=== PATIENT | male | born 1945 | race Caucasian/White ===

== ENCOUNTER 2018-03-24 08:49 | Outpatient (CLI) | payer MEDICARE ==
--- NOTE | 2018-03-24 10:06 | ULT ---
ABDOMINAL AORTIC ULTRASOUND WITH PEREYRA SCALE AND DOPPLER COLOR FLOW AND SPECTRAL ANALYSIS: Date; 03/24/18 HISTORY: Cerebrovascular disease. Screening evaluation for aortic aneurysm. FINDINGS: There is atherosclerotic irregularity of the imaged aorta. The proximal aorta does approximate aneury smal size at 2.9 cm in visualized diameter. Mid abdominal aorta is documented at 1.5 cm and distal ab dominal aorta is 1.1 cm in diameter. IMPRESSION: Borderline aneurysmal dilatation of the abdominal aorta. This may be further assessed with dedicated CTA of abdomen. POS: BARBIE
== END 2018-03-24 08:50 | disposition home or self-care (01) ==
LOC: SCSULT 08:49
PROVIDERS: ATTEND Family Medicine
DX: Z13.6 Encounter for screening for cardiovascular disorders (principal)
CPT/HCPCS: 76775

== ENCOUNTER 2018-04-01 10:17 | Outpatient (CLI) | payer MEDICARE ==
[2018-04-01] MEDS ORDERED: Iopamidol 370 76% 100 ML VIAL ONE (11:24)
== END 2018-04-01 10:18 | disposition home or self-care (01) ==
LOC: BICCT 10:17
PROVIDERS: ATTEND Family Medicine
DX: I77.819 Aortic ectasia, unspecified site (principal); N20.0 Calculus of kidney
CPT/HCPCS: 74175; 82565

== ENCOUNTER 2018-12-21 08:29 | Outpatient (CLI) | payer MEDICARE ==
--- NOTE | 2018-12-21 12:02 | CT ---
CT ANGIO CHEST WITH IV CONTRAST AND 3D POST PROCESSING: HISTORY: A 73-year-old male with aortic root dilatation. Hypertension. FINDINGS: No mediastinal, hilar, or axillary mass or lymphadenopathy is seen. No pleural or pericardial effusi ons are identified. The lung rahman are clear. There are degenerative changes in the spine. The aortic measurements at different levels are as follows: Aortic annulus: 2.6 cm Aortic sinuses of Valsalva: 4.2 cm Sinotubular junction: 2.6 cm Mid ascending aorta: 3.8 cm High ascending aorta: 3.6 cm Mid aortic arch: 2.8 cm Proximal descending aorta: 2.9 cm Mid descending aorta: 2.4 cm Aorta at diaphragmatic hiatus (2 cm above the celiac axis origin): 2.7 cm At celiac axis origin: 2.5 cm The thoracic aorta is well opacified without evidence of dissection. There is a cyst arising from th e upper aspect of the left kidney, on the upper abdominal tomograms. A tiny, nonobstructing right re nal calculus is also noted. There is a small hiatal hernia. IMPRESSION: Aortic measurements as above. POS: BARBIE
== END 2018-12-21 08:30 | disposition home or self-care (01) ==
LOC: SCSCT 08:29
PROVIDERS: ATTEND Internal Medicine Cardiovascular Disease
DX: I77.810 Thoracic aortic ectasia (principal)
CPT/HCPCS: 71275; 82565

== ENCOUNTER 2020-07-05 08:21 | Outpatient (CLI) | payer MEDICARE ==
--- NOTE | 2020-07-05 10:53 | CT ---
CTA CHEST WITH CONTRAST: Date: 07/05/2020 COMPARISON: 12/21/2018. HISTORY: Aortic root dilation. TECHNIQUE: Multiple contiguous axial images were obtained in a CTA of the chest with contrast. 3D sagittal and c oronal MIP reformats were performed. FINDINGS: The heart is normal in size without focal cardiac abnormality. Calcifications are seen in the coronar y arteries. No hilar or mediastinal lymphadenopathy are seen. There is a small hiatal hernia. Aortic measurements are as follows: Aortic annulus: 2.7 cm Aortic sinuses of Valsalva: 4.0 cm Ascending aorta: 3.6 cm at level of main pulmonary artery Descending thoracic aorta: 3.2 cm proximally No suspicious pulmonary nodules are seen. No focal infiltrates are seen. No pneumothorax or pleural e ffusion present. The visualized subdiaphragmatic structures are unremarkable. The patient is status post cholecystecto my. Degenerative changes are seen in the spine. The chest wall soft tissues are unremarkable. IMPRESSION: Stable ectasia of the aortic root. POS: AH
[2020-07-05] MEDS ORDERED: Iopamidol-370 76% 500 ML 1 ML ONE (14:10)
== END 2020-07-05 08:22 | disposition home or self-care (01) ==
LOC: BICCT 08:21
PROVIDERS: ATTEND Internal Medicine Cardiovascular Disease
DX: I77.810 Thoracic aortic ectasia (principal)
CPT/HCPCS: 71275

== ENCOUNTER 2021-09-08 21:49 | Observation (INO) | payer MEDICARE ==
[~2021-09-08 21:49] MED LIST: Iopamidol-370 76% 500 ML 1 ML ONE
[2021-09-08] MEDS ORDERED: Aspirin Chewable 81 MG TAB ONE (23:07)
[2021-09-08 23:09] LABS: #Eosinphils 0.2 thou/uL (0.0-0.7); #Lymphocytes 0.6 thou/uL (1.20-3.40); #Monocytes 0.8 thou/uL (0.11-0.59); #Neutrophils 6.4 thou/uL (1.40-6.50); %Basophils 0.3 % (0.0-1.0); %Eosinophils 2.4 % (0.0-10.0); %Lymphocytes 7.7 % (21.0-51.0); %Monocytes 9.4 % (0.0-10.0); %Neutrophils 80.2 % (42.0-75.0); Hemoglobin 15.4 g/dL (14.0-18.0); Mean Corpuscular Hemoglobin 30.8 pg (27.0-31.0); Mean Corpuscular Volume 90.7 fL (78.0-98.0); Mean Platelet Volume 7.6 fL (7.4-10.4); Platelet Count 194 thou/uL (130-400); RBC Distribution Width 11.9 % (11.5-14.5); White Blood Cell (WBC) Count 7.9 thou/uL (4.8-10.8)
[2021-09-08 23:21] LABS: ALT (SGPT) 23 U/L (8-55); AST (SGOT) 24 U/L (5-34); Alkaline Phosphatase 98 U/L (40-110); Anion Gap 16 mmol/L (10-20); BUN (Urea Nitrogen) 16 mg/dL (8.4-25.7); Bilirubin, Total 1.4 mg/dL (0.2-1.2); Calc. Creatinine Clearance 0 mL/min (70-130); Calcium 9.9 mg/dL (7.8-10.44); Carbon Dioxide 26 mmol/L (23-31); Chloride 101 mmol/L (98-107); Globulin 2.5 g/dL (2.4-3.5); Glucose 120 mg/dL (83-110); Potassium 3.9 mmol/L (3.5-5.1); Protein, Total 6.5 g/dL (5.8-8.1); Sodium 139 mmol/L (136-145)
[2021-09-09 02:22] LABS: SARS-CoV-2 NAA Rapid Test DETECTED (NotDetected)
[2021-09-09] MEDS ORDERED: Ondansetron ODT 4 MG TAB PO PRN (09:25)
[2021-09-09] MEDS ORDERED: Acetaminophen 325 MG TAB PO PRN (09:25)
[2021-09-09] MEDS ORDERED: Senokot S 8.6-50 MG TAB PO PRN (09:25)
[2021-09-09] MEDS ORDERED: hydrALAZINE 20 MG/ML VIAL SLOW IVP PRN (12:00)
[2021-09-09] MEDS ORDERED: Pharmacy to Dose REMDESIVIR IVPB PRN (12:00)
[2021-09-09] MEDS ORDERED: Sodium Chloride 0.9% 1,000 ML IV SCH (12:45)
[2021-09-09] MEDS ORDERED: guaiFENesin 200 MG TAB PO SCH (13:30)
[2021-09-09 16:53] VITALS: BMI 28.8
[2021-09-09] MEDS ORDERED: FLU VACC QS2021-22(65YR UP)/PF 240 MCG/0.7 ML SYRINGE IM ONE (17:15)
[2021-09-09] MEDS: guaiFENesin 200 MG TAB PO SCH ×2 (18:08→21:31)
[2021-09-09] MEDS: Enoxaparin Sodium 40 MG/0.4 ML SYRINGE SC SCH (21:30)
[2021-09-10] MEDS: guaiFENesin 200 MG TAB PO SCH ×6 (00:50→20:00)
[2021-09-10 04:51] LABS: #Eosinphils 0.3 thou/uL (0.0-0.7); #Lymphocytes 1.3 thou/uL (1.20-3.40); #Monocytes 0.9 thou/uL (0.11-0.59); #Neutrophils 3.6 thou/uL (1.40-6.50); %Basophils 0.3 % (0.0-1.0); %Eosinophils 5.2 % (0.0-10.0); %Lymphocytes 21.8 % (21.0-51.0); %Monocytes 13.9 % (0.0-10.0); %Neutrophils 58.9 % (42.0-75.0); Mean Corpuscular HGB CONC 34.1 g/dL (32.0-36.0); Mean Corpuscular Volume 90.9 fL (78.0-98.0); Mean Platelet Volume 7.8 fL (7.4-10.4); Platelet Count 186 thou/uL (130-400); RBC Distribution Width 12.1 % (11.5-14.5); White Blood Cell (WBC) Count 6.2 thou/uL (4.8-10.8)
[2021-09-10 05:15] LABS: Anion Gap 10 mmol/L (10-20); BUN (Urea Nitrogen) 17 mg/dL (8.4-25.7); Calc. Creatinine Clearance 68 mL/min (70-130); Calcium 9.1 mg/dL (7.8-10.44); Carbon Dioxide 27 mmol/L (23-31); Chloride 105 mmol/L (98-107); Glucose 88 mg/dL (83-110); Potassium 3.3 mmol/L (3.5-5.1); Sodium 139 mmol/L (136-145)
[2021-09-10] MEDS: Ascorbic Acid 500 mg Chewable Tablet PO SCH (08:06)
[2021-09-10] MEDS: Zinc Sulfate 220 MG CAP PO SCH (08:07)
[2021-09-10] MEDS: Cholecalciferol 1,000 UNITS (25 MCG) TAB PO SCH (08:07)
[2021-09-10] MEDS: Dexamethasone 4 mg/ml Vial SLOW IVP SCH (08:07)
[2021-09-10] MEDS: Enoxaparin Sodium 40 MG/0.4 ML SYRINGE SC SCH ×2 (08:08→20:00)
[2021-09-10] MEDS ORDERED: Enoxaparin Sodium 40 MG/0.4 ML SYRINGE SC SCH (09:00)
[2021-09-10] MEDS ORDERED: Lisinopril 20 MG TAB PO SCH (13:37)
[2021-09-10] MEDS ORDERED: Hydrochlorothiazide 25 MG TAB PO SCH (13:37)
[2021-09-10] MEDS ORDERED: hydrALAZINE 20 MG/ML VIAL SLOW IVP PRN (13:41)
[2021-09-10] MEDS ORDERED: Simvastatin 10 MG TAB PO SCH (21:00)
[2021-09-10] MEDS ORDERED: Terazosin HCl 5 MG CAP PO SCH (21:00)
[2021-09-11] MEDS: guaiFENesin 200 MG TAB PO SCH ×3 (01:14→09:23)
[2021-09-11] MEDS ORDERED: Non-Formulary Item 1 EACH (Lisinopril [Lisinopril] 40 MG Tablet) PO SCH (09:00)
[2021-09-11] MEDS ORDERED: Lisinopril 20 MG TAB PO SCH (09:00)
[2021-09-11] MEDS ORDERED: Hydrochlorothiazide 25 MG TAB PO SCH (09:00)
[2021-09-11] MEDS: Enoxaparin Sodium 40 MG/0.4 ML SYRINGE SC SCH (09:23)
[2021-09-11] MEDS: Dexamethasone 4 mg/ml Vial SLOW IVP SCH (09:24)
[2021-09-11] MEDS: Cholecalciferol 1,000 UNITS (25 MCG) TAB PO SCH (09:24)
[2021-09-11] MEDS: Zinc Sulfate 220 MG CAP PO SCH (09:24)
[2021-09-11] MEDS: Ascorbic Acid 500 mg Chewable Tablet PO SCH (09:24)
[2021-09-11 09:41] LABS: Anion Gap 10 mmol/L (10-20); BUN (Urea Nitrogen) 16 mg/dL (8.4-25.7); Calc. Creatinine Clearance 77 mL/min (70-130); Carbon Dioxide 27 mmol/L (23-31); Chloride 104 mmol/L (98-107); Glucose 93 mg/dL (83-110); Potassium 3.2 mmol/L (3.5-5.1); Sodium 138 mmol/L (136-145)
[2021-09-11] MEDS ORDERED: Potassium Chloride 20 MEQ TAB PO SCH (12:00)
[2021-09-11 12:30] VITALS: BP 146/79; TEMP 98.3
[2021-09-11] MEDS ORDERED: guaiFENesin 200 MG TAB PO PRN (17:00)
== END 2021-09-11 14:38 | disposition home or self-care (01) ==
LOC: ERS 21:49 → ERHOLD 09-09 00:23 → 2SW 09-09 16:43
PROVIDERS: ADMIT Student in an Organized Health Care Education/Training Program; ATTEND Internal Medicine
DX: U07.1 COVID-19 (principal); J12.82 Pneumonia due to coronavirus disease 2019; I10 Essential (primary) hypertension; N17.9 Acute kidney failure, unspecified; G47.30 Sleep apnea, unspecified; I08.3 Combined rheumatic disorders of mitral, aortic and tricuspid valves; E66.9 Obesity, unspecified; Z68.29 Body mass index [BMI] 29.0-29.9, adult; Z79.899 Other long term (current) drug therapy; Z91.048 Other nonmedicinal substance allergy status
CPT/HCPCS: 70450; 71045; 71275; 80048 ×2; 80053; 83605; 84484; 85025 ×2; 93005; 93306; 96372 ×3; 96374; 96376; 97139 ×5; 99285; G0378 ×4; U0002; 36415; J1100; J1650; J7050; Q9967